=== PATIENT | male | born 1950 | race Caucasian/White ===

== ENCOUNTER 2021-02-25 08:15 | Emergency (ER) | payer MEDICARE ==
[~2021-02-25] VITALS: Ht 165.1 cm; Wt 81.7 kg
[~2021-02-25 08:15] MED LIST: AMLO5 PO; ASPI81CH PO; ATOR20 PO; Aspirin EC81 MG PO; Coq-10100 MG PO; ENAL5 PO; Ferrous Sulfat325 MG PO; METO25ER PO
== END 2021-02-25 09:47 | disposition home or self-care (01) ==
LOC: ER 08:15
DX: R04.0 Epistaxis (principal); I10 Essential (primary) hypertension; Z88.5 Allergy status to narcotic agent; Z79.899 Other long term (current) drug therapy; Z79.82 Long term (current) use of aspirin
CPT/HCPCS: 30905; 99283-25; A9270

== ENCOUNTER → 2023-03-27 | Outpatient (CLI) | payer MEDICARE | END | disposition home or self-care (01) | LOC: PLD 09:30 → LAB SHORT 09:30 | DX: D48.5 Neoplasm of uncertain behavior of skin (principal) | CPT/HCPCS: 88305 ==